=== PATIENT | female | born 1940 | race Caucasian/White ===

== ENCOUNTER 2020-02-08 00:27 | Emergency (ER) | payer MEDICARE ==
[2020-02-08] MEDS ORDERED: NORMAL SALINE 500 ML IV ONE (00:37)
--- NOTE | 2020-02-08 00:39 | ER Document Report ---
ED Syncope and Near Syncope - General Chief Complaint: Syncope Stated Complaint: POSSIBLE SYNCOPE Time Seen by Provider: 02/08/20 00:30 Primary Care Provider: TOBY JUARES PA [Primary Care Provider] - Follow up as needed Notes: Patient is a 79-year-old female that comes to the emergency department for chief complaint of an episode prior to arrival where she was sitting on the toilet, she was straining to have a bowel movement, she was unable to have a bowel movement, and then she passed out. Patient reportedly was eased to the ground by family, she did not have a head injury, she denies any injuries or any comp laints currently. She denies chest pain before after, shortness of breath, fever, vomiting, or any other complaints. She states she ate within the past few hours. She denies previously passing out. She is not on a blood thinner. Past medical history of hypertension, hyperlipidemia, anxiety/depression on paroxetine. She lives at home with her family. - Related Data Allergies/Adverse Reactions: No Known Allergies Allergy (Unverified 02/08/20 03:44) Past Medical History - General Information source: Patient - Social History Smoking Status: Never Smoker Frequency of alcohol use: None Drug Abuse: None Lives with: Family Family History: Reviewed & Not Pertinent - Past Medical History Cardiac Medical History: Reports: Hx Hypercholesterolemia, Hx Hypertension Psychiatric Medical History: Reports: Hx Depression - Immunizations Immunizations up to date: Yes Hx Diphtheria, Pertussis, Tetanus Vaccination: Yes Review of Systems - Review of Systems Constitutional: See HPI EENT: No symptoms reported Cardiovascular: See HPI Respiratory: No symptoms reported Gastrointestinal: See HPI Genitourinary: No symptoms reported Female Genitourinary: No symptoms reported Musculoskeletal: No symptoms reported Skin: No symptoms reported Hematologic/Lymphatic: No symptoms reported Neurological/Psychological: See HPI Physical Exam - Vital signs Vitals: Resp BP Pulse Ox 16 110/75 97 02/08/20 00:36 02/08/20 00:36 02/08/20 00:36 - Notes Notes: GENERAL: Alert, interacts well. No acute distress. Smiling and well-appearing. Appears clean and well-kept HEAD: Normocephalic, atraumatic. EYES: Pupils equal, round, and reactive to light. Extraocular movements intact. ENT: Oral mucosa moist, tongue midline. Oropharynx unremarkable. Airway patent. Nares patent, sinuses non-tender NECK: Full range of motion. Supple. Trachea midline. No lymphadenopathy. LUNGS: Clear to auscultation bilaterally, no wheezes, rales, or rhonchi. No respiratory distress. Non-tender chest wall. HEART: Regular rate and rhythm. No murmur ABDOMEN: Soft, non-tender. Non-distended. Bowel sounds present in all 4 quadrants. GENITOURINARY: Deferred EXTREMITIES: Moves all 4 extremities spontaneously. No edema, normal radial and dorsalis pedis pulses bilaterally. No cyanosis. BACK: no cervical, thoracic, lumbar midline tenderness. No saddle anesthesia, normal distal neurovascular exam. Moves all extremities in full range of motion. NEUROLOGICAL: Alert and oriented x3. Normal speech. Cranial nerves II through XII grossly intact. Strength 5/5 in all extremities. PSYCH: Normal affect, normal mood. SKIN: Warm, dry, normal turgor. No rashes or lesions noted. Course - Re-evaluation Re-evalutation: Patient is alert, oriented, smiling, well-appearing, has no current complaints. Patient had an episode of syncope after straining on the toilet prior to arrival. She did not have chest pain, she denies headache, she has no neurological deficits on exam, her abdomen is soft and benign. CBC unremarkable without concerning anemia, chemistry unremarkable with unremarkable blood glucose, troponin negative, EKG nonspecific, chest x-ray unremarkable, abdominal series without any concerning findings. Urinalysis shows evidence of UTI but is otherwise unremarkable. On reevaluation patient still has no symptoms, she is alert, well-appearing, requesting to go home. I do suspect vasovagal syncope without secondary concerning finding noted. Patient performed orthostatic vital signs without any difficulty or concerning vital signs. Patient will be discharged with antibiotics for UTI, discussed follow-up instructions, discussed return precautions. Patient states understanding and agreement, she is going home with family. - Vital Signs Vital signs: Temp Pulse Resp BP Pulse Ox 98.2 F 79 18 147/97 H 97 02/08/20 04:15 02/08/20 03:18 02/08/20 03:47 02/08/20 03:47 02/08/20 03:47 - Laboratory Result Diagrams: 02/08/20 00:40 02/08/20 00:40 Laboratory results interpreted by me: 02/08/20 02/08/20 00:40 02:06 Glucose 147 H Urine Blood SMALL H Ur Leukocyte Esterase LARGE H - EKG Interpretation by Me Additional EKG results interpreted by me: EKG shows sinus rhythm at a rate of 68, slightly flattened T waves laterally and inferiorly but no T wave inversions or ST segment changes in consecutive leads. GA interval of 188, QTC of 460. Discharge - Discharge Clinical Impression: Episode of syncope Qualifiers: Syncope type: unspecified Qualified Code(s): R55 - Syncope and collapse Condition: Stable Disposition: HOME, SELF-CARE Additional Instructions: Your work-up shows a urinary tract infection but no concerning findings are noted from your episode tonight. You appear to have had vasovagal syncope. See instructions on this listed below. Follow-up with primary care. Take antibiotics to completion. Take the stool softener for the next 1-2 days if needed. Avoid straining or rapid position changes. Return if you worsen including vomiting, passing out again, fever, chest pain, or any other concerning or worsening symptoms. Syncopal Episode Syncope (fainting or near-fainting) can occur from many different health problems. Or it can be a simple fainting spell requiring no treatment. It is safe for you to go home, but further evaluation will likely be necessary. Your work-up may include tests for internal bleeding, heart disease, medication problems, or near-strokes. Tests are not always required, however, depending on the nature of your problem. The warning signs of an impending faint include: dizziness, lightheadedness, nausea, hot flashes, tingling, and weakness. If this happens, lay down and put your feet up, then wait until all of these symptoms have passed before standing up again. If these episodes become recurrent, or if you develop chest pain, heart palpitations, mental confusion, blurred vision, or headache, then you should call the physician, or go to the emergency room. Prescriptions: Cephalexin Monohydrate [Keflex 500 mg Capsule] 500 mg PO BID 7 Days #14 capsule Polyethylene Glycol 3350 [Miralax Powder 17 gm/Packet] 1 packet PO DAILY PRN #1 pkg PRN Reason: Referrals: TOBY JUARES PA [Primary Care Provider] - Follow up as needed
[2020-02-08 00:50] LABS: ABSOLUTE BASOPHILS # (AUTO) 0.1 10^3/uL (0.0-0.2); ABSOLUTE EOSINOPHILS # (AUTO) 0.3 10^3/uL (0.0-0.6); ABSOLUTE LYMPHOCYTES (AUTO) 2.9 10^3/uL (0.5-4.7); ABSOLUTE MONOCYTES (AUTO) 0.3 10^3/uL (0.1-1.4); ABSOLUTE NEUT (AUTO) 4.7 10^3/uL (1.7-8.2); BASOPHILS % (AUTO) 0.9 % (0-2); EOSINOPHILS % (AUTO) 3.2 % (0-6); HEMOGLOBIN 12.6 g/dL (12.0-15.5); LYMPHOCYTES % (AUTO) 35.2 % (13-45); MEAN CORPUSCULAR HEMOGLOBIN 30.7 pg (27.0-33.4); MEAN CORPUSCULAR VOLUME 88 fl (80-97); MONOCYTES % (AUTO) 4.2 % (3-13); PLATELET COUNT 305 10^3/uL (150-450); RED BLOOD COUNT 4.11 10^6/uL (3.72-5.28); RED CELL DISTRIBUTION WIDTH 13.7 % (11.5-14.0); SEGMENTED NEUTROPHILS % (AUTO) 56.5 % (42-78); TOTAL CELLS COUNTED % (AUTO) 100 %; WHITE BLOOD COUNT 8.3 10^3/uL (4.0-10.5)
--- NOTE | 2020-02-08 01:36 | RADIOLOGY REPORT (SQ) ---
CLINICAL HISTORY: abd swelling, no recent bowel movement; syncope COMPARISON: None. TECHNIQUE: XR ABDOMEN SUPINE AND ERECT WITH CHEST (ABD ACUTE SERIES) 02/08/2020 12:38 AM CDT FINDINGS: Bowel gas pattern is nonspecific. There are no abnormal radiopaque foreign bodies or abnormal calcifications. Osseous structures are grossly unremarkable. The heart is mildly enlarged. Lungs are clear. IMPRESSION: No bowel obstruction.
[2020-02-08 02:00] LABS: ALBUMIN 3.9 g/dL (3.5-5.0); ALKALINE PHOSPHATASE 76 U/L (38-126); ANION GAP 8 (5-19); ASPARTATE AMINO TRANSFERASE 33 U/L (14-36); BILIRUBIN,TOTAL 0.4 mg/dL (0.2-1.3); BLOOD UREA NITROGEN 16 mg/dL (7-20); CALCIUM 9.1 mg/dL (8.4-10.2); CARBON DIOXIDE 28 mmol/L (22-30); CHLORIDE 102 mmol/L (98-107); GLUCOSE 147 mg/dL (75-110); POTASSIUM 3.8 mmol/L (3.6-5.0); TOTAL PROTEIN 6.6 g/dL (6.3-8.2)
[2020-02-08 02:19] LABS: APPEARANCE,URINE SLIGHTLY-CLOUDY; BILIRUBIN,URINE NEGATIVE (NEGATIVE); COLOR,URINE YELLOW; GLUCOSE, URINE NEGATIVE (NEGATIVE); KETONES,URINE NEGATIVE (NEGATIVE); LEUKOCYTE ESTERASE,URINE LARGE (NEGATIVE); NITRITE,URINE NEGATIVE (NEGATIVE); PROTEIN,URINE NEGATIVE (NEGATIVE); UROBILINOGEN,URINE NEGATIVE mg/dL (<2.0)
[2020-02-08] MEDS ORDERED: CEPHALEXIN 500 MG CAPSULE PO ONE (03:32)
[2020-02-08 03:56] VITALS: BP 147/97
--- NOTE | 2020-02-10 10:54 | EKG REPORT ---
SEVERITY:- BORDERLINE ECG - SINUS RHYTHM LEFT AXIS DEVIATION BORDERLINE T ABNORMALITIES, DIFFUSE LEADS : Confirmed by: Tasha Mccloud 10-Feb-2020 10:54:26
== END 2020-02-08 04:20 | disposition home or self-care (01) ==
LOC: ER 00:27
DX: R55 Syncope and collapse (principal); E78.00 Pure hypercholesterolemia, unspecified; I10 Essential (primary) hypertension
CPT/HCPCS: 93005; 99284; 96360; 36415; 87086; 85025; 80053; 81001; 84484; 74022; 93010; A9270; J7040